=== PATIENT | male | born 1950 | race Caucasian/White ===

== ENCOUNTER 2016-09-10 10:46 | Emergency (ER) | payer BC, MEDICARE ==
[~2016-09-10] VITALS: Ht 162.6 cm; Wt 74.0 kg
[~2016-09-10 10:46] MED LIST: ASPI81 PO; CADU10TA2 PO
[2016-09-10 10:49] VITALS: BP 219/98; PULSE 46; RESP 16; TEMP 97.7; O2SAT 96
[2016-09-10] MEDS ORDERED: blood pressure med PO (11:19)
[2016-09-10] MEDS ORDERED: LOSA100T PO (11:19)
[2016-09-10] MEDS ORDERED: LABE100T2 PO (11:19)
[2016-09-10 11:20] VITALS: BP 186/86; PULSE 69; RESP 18; O2SAT 96
--- NOTE | 2016-09-10 11:44 | PD ---
HPI Chief Complaint: Flank/Kidney Pain Time Seen by Provider: 11:35 Travel History International Travel<30 days: No Contact w/Intl Traveler<30days: No Traveled to known affect area: No History of Present Illness HPI This patient complains of right flank pain. Duration 3 days. Symptoms are moderate to severe at times. Seems the same as his kidney stone pain which he' s had multiple times before. Denies fever or hematuria or abdominal pain. No sciatic radiation. No alleviating factors. PFSH Past Medical History Depression: Yes High Cholesterol: Yes Hypertension: Yes Past Surgical History Eye Surgery: Yes (LT EYE SURGERY S/P TOXOPLASMOSIS A CHILD) Tonsillectomy: Yes Social History Alcohol Use: Yes (2-3 BEERS DAILY) Tobacco Use: No Substance Use: No Allergies-Medications (Allergen,Severity, Reaction): Coded Allergies: Codeine (Verified Allergy, Intermediate, UPSET STOMACH, 09/10/16) Reported Meds & Prescriptions Reported Meds & Active Scripts Active Reported Losartan (Losartan Potassium) 100 Mg Tab 100 Mg PO DAILY Review of Systems General / Constitutional: No: Fever Eyes: No: Visual changes HENT: No: Headaches Cardiovascular: No: Chest Pain or Discomfort Respiratory: No: Shortness of Breath Gastrointestinal: Positive: Nausea, No: Abdominal Pain Genitourinary: Positive: Flank Pain, No: Dysuria Musculoskeletal: No: Pain Skin: No Rash Neurologic: No: Weakness Psychiatric: No: Depression Endocrine: No: Polydipsia Hematologic/Lymphatic: No: Easy Bruising Physical Exam Narrative GENERAL: Well-nourished, well-developed patient with flank pain. SKIN: Warm and dry. HEAD: Atraumatic. Normocephalic. EYES: Pupils equal and round. No scleral icterus. No injection or drainage. ENT: No nasal bleeding or discharge. Mucous membranes pink and moist. NECK: Trachea midline. No JVD. CARDIOVASCULAR: Regular rate and rhythm. No murmur appreciated. RESPIRATORY: No accessory muscle use. Clear to auscultation. Breath sounds equal bilaterally. GASTROINTESTINAL: Abdomen soft, non-tender, nondistended. Hepatic and splenic margins not palpable. MUSCULOSKELETAL: No obvious deformities. No clubbing. No cyanosis. No edema. No midline tenderness of the back NEUROLOGICAL: Awake and alert. No obvious cranial nerve deficits. Motor grossly within normal limits. Normal speech. PSYCHIATRIC: Appropriate mood and affect; insight and judgment normal. Data Data Last Documented VS Vital Signs Date Time Temp Pulse Resp B/P Pulse Ox O2 Delivery O2 Flow Rate FiO2 09/10/16 13:23 55 18 190/91 95 Room Air 09/10/16 10:49 97.7 Orders Complete Blood Count With Diff (09/10/16 11:40) Basic Metabolic Panel (Bmp) (09/10/16 11:40) Urinalysis - C+S If Indicated (09/10/16 11:40) Ct Abd/Pel W/O Iv Contrast (09/10/16 11:40) Iv Access Insert/Monitor (09/10/16 11:40) Ondansetron Inj (Zofran Inj) (09/10/16 11:45) Sodium Chloride 0.9% Flush (Ns Flush) (09/10/16 11:45) Hydromorphone Pf Inj (Dilaudid Pf Inj) (09/10/16 11:45) Labs Laboratory Tests Test 09/10/16 09/10/16 11:30 11:35 Urine Color LIGHT-YELLOW Urine Turbidity CLEAR Urine pH 6.0 Urine Specific [place] 1.011 Urine Protein NEG mg/dL Urine Glucose (UA) NEG mg/dL Urine Ketones 10 mg/dL Urine Occult Blood TRACE Urine Nitrite NEG Urine Bilirubin NEG Urine Urobilinogen LESS THAN 2.0 MG/DL Urine Leukocyte Esterase SMALL Urine RBC 1 /hpf Urine WBC 2 /hpf Urine Squamous Epithelial <1 /hpf Cells Microscopic Urinalysis Comment CULT NOT INDICATED White Blood Count 14.9 TH/MM3 Red Blood Count 5.19 MIL/MM3 Hemoglobin 16.2 GM/DL Hematocrit 48.0 % Mean Corpuscular Volume 92.4 FL Mean Corpuscular Hemoglobin 31.1 PG Mean Corpuscular Hemoglobin 33.7 % Concent Red Cell Distribution Width 13.6 % Platelet Count 172 TH/MM3 Mean Platelet Volume 10.9 FL Neutrophils (%) (Auto) 80.9 % Lymphocytes (%) (Auto) 12.0 % Monocytes (%) (Auto) 6.9 % Eosinophils (%) (Auto) 0.1 % Basophils (%) (Auto) 0.1 % Neutrophils # (Auto) 12.1 TH/MM3 Lymphocytes # (Auto) 1.8 TH/MM3 Monocytes # (Auto) 1.0 TH/MM3 Eosinophils # (Auto) 0.0 TH/MM3 Basophils # (Auto) 0.0 TH/MM3 CBC Comment AUTO DIFF Differential Comment AUTO DIFF CONFIRMED Sodium Level 139 MEQ/L Potassium Level 3.6 MEQ/L Chloride Level 104 MEQ/L Carbon Dioxide Level 26.8 MEQ/L Anion Gap 8 MEQ/L Blood Urea Nitrogen 22 MG/DL Creatinine 1.35 MG/DL Estimat Glomerular Filtration 53 ML/MIN Rate Random Glucose 106 MG/DL Calcium Level 8.7 MG/DL [facility] Medical Decision Making Medical Screen Exam Complete: Yes Emergency Medical Condition: Yes Medical Record Reviewed: Yes Differential Diagnosis Kidney stone, sciatica, pyelonephritis Narrative Course I have reviewed the patient's electronic medical record. Patient was last seen here 9 years ago for finger injury IV placed I gave him a dose of pain medicine and nausea medicine Urinalysis shows no infection CT of abdomen and pelvis shows a 1.7 mm right sided stone near the bladder CBC is normal Metabolic profile is normal On recheck the patient feels improved. He stable for outpatient follow-up. He has pain medicine at home. I wrote him some Flomax and Zofran Recommend he follow up with urologist Diagnosis Primary Impression: Kidney stone on right side Additional Instructions: The patient was advised to follow up with urologist Med/Other Pt SpecificInfo: Prescription(s) given Scripts Ondansetron (Zofran)4 Mg Tab4 Mg PO Q6HR PRN (NAUSEA OR VOMITING) #10 TAB Ref 0 Prov:Niko Arevalo MD 09/10/16 Tamsulosin (Flomax)0.4 Mg Cap0.4 Mg PO HS #7 CAP Ref 0 Prov:Niko Arevalo MD 09/10/16 Disposition: 01 DISCHARGE HOME Condition: Stable Niko Arevalo MD Sep 10, 2016 11:44
[2016-09-10] MEDS ORDERED: HYDROmorphone HCL PF 1 MG/ML VIAL IM ONE (11:45)
[2016-09-10] MEDS ORDERED: ONDANSETRON HCL 4 MG/2 ML VIAL IVP ONE (11:45)
[2016-09-10] MEDS ORDERED: SODIUM CHLORIDE 0.9% FLUSH 5 ML FLUSH IVF PRN (11:45)
[2016-09-10 12:14] LABS: BLOOD, URINE TRACE (NEG); COMMENT (UR) CULT NOT INDICATED; CULTURE IF INDICATED CULT NOT INDICATED; GLUCOSE,URINE NEG (NEG); KETONE, URINE 10 mg/dL (NEG); NITRITE,URINE NEG (NEG); SQUAMOUS EPITHELIAL CELL URINE <1 /hpf (0-5); URINE COLOR LIGHT-YELLOW (YELLW/STRAW)
[2016-09-10 12:19] LABS: AUTOMATED NEUTROPHIL # 12.1 TH/MM3 (1.8-7.7); BASOPHIL % 0.1 % (0.0-2.0); EOSINOPHIL % 0.1 % (0.0-4.0); LYMPHOCYTE # 1.8 TH/MM3 (1.0-4.8); MEAN CELL VOLUME 92.4 FL (80.0-100.0); MEAN CORPUSCULAR HEMOGLOBIN 31.1 PG (27.0-34.0); MEAN CORPUSCULAR HGB CONC 33.7 % (32.0-36.0); MONO % 6.9 % (0.0-8.0); NEUT % 80.9 % (16.0-70.0); PLATELET COUNT 172 TH/MM3 (150-450); RED BLOOD COUNT 5.19 MIL/MM3 (4.50-5.90); RED CELL DISTRIBUTION WIDTH 13.6 % (11.6-17.2); WHITE BLOOD COUNT 14.9 TH/MM3 (4.0-11.0)
[2016-09-10 12:20] LABS: HEMO FLAGS AUTO DIFF
--- NOTE | 2016-09-10 12:25 | RADRPT ---
EXAM DATE/TIME: 09/10/2016 11:55 [place] COMPARISON: No previous studies available for comparison. INDICATIONS : Right flank pain, nausea. ORAL CONTRAST: No oral contrast ingested. RADIATION DOSE: 14.15 CTDIvol (mGy) MEDICAL HISTORY : Hypertension. Renal calculi. SURGICAL HISTORY : None. ENCOUNTER: Initial ACUITY: 3 days PAIN SCALE: 8/10 LOCATION: Right flank TECHNIQUE: Volumetric scanning of the abdomen and pelvis was performed. Using automated exposure control and ad justment of the mA and/or kV according to patient size, radiation dose was kept as low as reasonably achievable to obtain optimal diagnostic quality images. FINDINGS: LOWER LUNGS: Linear scarring versus atelectasis within the left lung base. A tiny hiatal hernia. LIVER: Homogeneous density without lesion. There is no dilation of the biliary tree. No calcified gallston es. SPLEEN: Normal size without lesion. PANCREAS: Within normal limits. KIDNEYS: Normal in size and shape. A 7 mm distal right ureteral stone situated 1 cm from the UVJ. This genera toshia mild hydronephrosis and hydroureter. There is a 1 mm nonobstructing stone involving the left kidn ey. A 2 mm stone is seen involving the upper pole of the right kidney. No perinephric stranding or fl uid collections. ADRENAL GLANDS: Within normal limits. VASCULAR: There is no aortic aneurysm. BOWEL/MESENTERY: The stomach, small bowel, and colon demonstrate no acute abnormality. There is no free intraperitone al air or fluid. ABDOMINAL WALL: Within normal limits. RETROPERITONEUM: There is no lymphadenopathy. BLADDER: No wall thickening or mass. REPRODUCTIVE: Within normal limits. INGUINAL: There is no lymphadenopathy or hernia. MUSCULOSKELETAL: Within normal limits for patient age. CONCLUSION: 1. 7 mm distal right ureteral stone 1 cm from the UVJ with mild hydronephrosis and hydroureter. 2. Tiny nonobstructing left renal stone. Wayne Gonsalez Jr., MD on September 10, 2016 at 12:11 Board Certified Radiologist. This report was verified electronically.
[2016-09-10 12:31] LABS: BICARBONATE 26.8 MEQ/L (21.0-32.0); POTASSIUM 3.6 MEQ/L (3.5-5.1)
[2016-09-10 12:44] VITALS: BP 179/130; PULSE 56; RESP 18; O2SAT 94
[2016-09-10 12:51] LABS: SCAN/DIFF AUTO DIFF CONFIRMED
[2016-09-10 13:23] VITALS: BP 190/91; PULSE 55; RESP 18; O2SAT 95
[2016-09-10] MEDS ORDERED: ZOFR4TAB PO (13:52)
[2016-09-10] MEDS ORDERED: TAMS5CAP PO (13:52)
[2016-09-30] MEDS ORDERED: PARO37.5 PO (14:29)
[2016-09-30] MEDS ORDERED: AMLO10TA2 PO (14:29)
[2016-09-30] MEDS ORDERED: ASPI1TAB69 PO (14:29)
== END 2016-09-10 14:24 | disposition home or self-care (01) ==
LOC: NEPA 10:46
DX: N20.0 Calculus of kidney (principal)
CPT/HCPCS: 74176; 80048; 81001; 85025; 96374; 96375; 99284; J1170; J2405